=== PATIENT | female | born 1975 | race Caucasian/White ===

== ENCOUNTER 2020-10-12 11:10 | Outpatient (CLI) | payer BC ==
--- NOTE | 2020-10-12 11:57 | RAD ---
3 views of the right shoulder: 10/12/2020 Comparison: None HISTORY: Right shoulder pain for one month FINDINGS: There is no widening of the acromioclavicular or coracoclavicular interspace. No displaced fracture or dislocation. There is curvilinear calcific density adjacent to the greater tuberosity of the proximal right humeru s measuring 1.3 cm. Findings are suspicious for calcific tendinosis. IMPRESSION: No acute fracture or dislocation. Findings suspicious for right-sided calcific tendinosis .
== END 2020-10-12 11:11 | disposition home or self-care (01) ==
LOC: SCSRAD 11:10
PROVIDERS: ATTEND Family Medicine
DX: M25.511 Pain in right shoulder (principal)